=== PATIENT | male | born 1995 | race Asian ===

== ENCOUNTER 2023-10-11 10:14 | Inpatient (IN) | payer OTHER ==
[2023-10-11 10:45] VITALS: BMI 25.8
[2023-10-11] MEDS ORDERED: BENZONATATE 200 MG CAPSULE PO PRN (11:24)
[2023-10-11] MEDS ORDERED: MAGNESIUM HYDROX 2400MG/30ML ORAL SUSPENSION 30 ML CUP PO PRN (11:24)
[2023-10-11] MEDS ORDERED: NICOTINE POLACRILEX 2 MG GUM BUC PRN (11:24)
[2023-10-11] MEDS ORDERED: DICYCLOMINE HCL 10 MG CAPSULE PO PRN (11:24)
[2023-10-11] MEDS ORDERED: ONDANSETRON *ODT* 4 MG TABLET SL PRN (11:24)
[2023-10-11] MEDS ORDERED: ACETAMINOPHEN 325 MG TABLET (FP) PO PRN (11:24)
[2023-10-11] MEDS ORDERED: LOPERAMIDE HCL 2 MG CAPSULE PO PRN (11:24)
[2023-10-11] MEDS ORDERED: IBUPROFEN 400 MG TABLET (FP) PO PRN (11:24)
[2023-10-11] MEDS ORDERED: BENZOCAINE/MENTHOL (CHLORASEPTIC ) LOZENGE MM PRN (11:24)
[2023-10-11] MEDS ORDERED: guaiFENesin 600 MG TABLET.ER (FP) PO PRN (11:24)
[2023-10-11] MEDS ORDERED: MAG HYDROX/AL HYDROX/SIMETH 30 ML UNIT-DOSE CUP PO PRN (11:24)
[2023-10-11] MEDS ORDERED: BISMUTH SUBSALICYLATE 524 MG/30 ML PO PRN (11:24)
[2023-10-11] MEDS ORDERED: POLYETHYLENE GLYCOL (HEALTHYLAX) 3350 17 GM PACKET PO PRN (11:24)
[2023-10-11] MEDS ORDERED: NALOXONE HCL (KLOXXADO) 8 MG SPRAY NS PRN (11:24)
[2023-10-11] MEDS ORDERED: NALOXONE HCL 0.4 MG/ML VIAL IM PRN (11:24)
[2023-10-11] MEDS ORDERED: diazePAM 5 MG TABLET PO PRN (11:52)
[2023-10-11] MEDS ORDERED: diazePAM 5 MG TABLET ONE (12:50)
[2023-10-11] MEDS ORDERED: PRENATAL VITAMINS W/ FOLIC ACID TABLET (FP) PO ONE (12:52)
[2023-10-11] MEDS ORDERED: methaDONE HCL 10 MG TABLET (FOR DETOX USE ONLY) ONE (12:52)
[2023-10-11] MEDS: methaDONE HCL 10 MG TABLET (FOR DETOX USE ONLY) PO ONE (12:58)
[2023-10-11] MEDS: diazePAM 5 MG TABLET PO ONE (12:58)
[2023-10-11] MEDS: PRENATAL VITAMINS W/ FOLIC ACID TABLET (FP) PO SCH (12:58)
[2023-10-11] MEDS: NICOTINE 21 MG/24 HOURS TOPICAL PATCH TD SCH (12:59)
[2023-10-11] MEDS ORDERED: NICOTINE 21 MG/24 HOURS TOPICAL PATCH ONE (12:59)
[2023-10-11] MEDS: diazePAM 5 MG TABLET PO SCH (17:35)
[2023-10-11] MEDS: IBUPROFEN 600 MG TABLET (FP) PO PRN (17:36)
[2023-10-11] MEDS: THIAMINE HCL 100 MG TABLET (FP) PO SCH (22:52)
[2023-10-11] MEDS: MELATONIN 5 MG TABLETS PO SCH (22:52)
[2023-10-11] MEDS: METHOCARBAMOL 500 MG TABLET PO PRN (22:54)
[2023-10-11] MEDS: cloNIDine HCL 0.1 MG TABLET PO PRN (22:54)
[2023-10-12 09:53] VITALS: BP 124/83; PULSE 64; RESP 16; TEMP 98.3
[2023-10-12 14:38] LABS: POTASSIUM 4.4 mmol/L (3.5-5.1)
[2023-10-12 14:41] LABS: ALBUMIN 3.2 g/dl (3.4-5.0); BLOOD UREA NITROGEN 10.2 mg/dL (7-18); CALCIUM 8.6 mg/dL (8.5-10.1)
[2023-10-12 14:44] LABS: CREATININE 0.6 mg/dL (0.55-1.3)
[2023-10-12 14:46] LABS: BILIRUBIN,TOTAL 0.4 mg/dL (0.2-1); TOT PROT 7.5 g/dl (6.4-8.2)
[2023-10-12] MEDS ORDERED: QUEtiapine FUMARATE 100 MG TABLET (FP) PO PRN (22:00)
[2023-10-13] MEDS ORDERED: diazePAM 5 MG TABLET PO SCH (06:00)
[2023-10-13] MEDS ORDERED: methaDONE HCL 10 MG TABLET (FOR DETOX USE ONLY) PO ONE (10:00)
[2023-10-14] MEDS ORDERED: diazePAM 5 MG TABLET PO SCH (06:00)
[2023-10-15] MEDS ORDERED: diazePAM 5 MG TABLET PO ONE (06:00)
[2023-10-15] MEDS ORDERED: methaDONE HCL 10 MG TABLET (FOR DETOX USE ONLY) PO ONE (10:00)
== END 2023-10-12 11:57 | disposition left against medical advice (07) | DRG 770 ==
LOC: YASAS 10:14 → Y6N 12:41
PROVIDERS: ADMIT Allergy & Immunology; ATTEND Surgery
PROC: HZ2ZZZZ Detoxification Services for Substance Abuse Treatment (ICD-10-PCS; principal; 2023-10-11)
DX: F11.23 Opioid dependence with withdrawal (principal); F10.10 Alcohol abuse, uncomplicated; F14.10 Cocaine abuse, uncomplicated; F13.10 Sedative, hypnotic or anxiolytic abuse, uncomplicated; F17.210 Nicotine dependence, cigarettes, uncomplicated; F19.282 Other psychoactive substance dependence with psychoactive substance-induced sleep disorder; F19.280 Other psychoactive substance dependence with psychoactive substance-induced anxiety disorder; F19.24 Other psychoactive substance dependence with psychoactive substance-induced mood disorder; F32.A Depression, unspecified; F41.9 Anxiety disorder, unspecified; Z56.0 Unemployment, unspecified; Z59.00 Homelessness unspecified
CPT/HCPCS: 36415; 80053; 80305; 87635; 87811; 93005; 93010

== ENCOUNTER 2024-06-18 13:40 | Inpatient (IN) | payer OTHER ==
[2024-06-18 14:14] VITALS: BMI 32.2
[2024-06-18] MEDS ORDERED: NALOXONE (NARCAN) HCL 4 MG/0.1 ML SPRAY NS PRN (15:56)
[2024-06-18] MEDS ORDERED: guaiFENesin 600 MG TABLET.ER (FP) PO PRN (15:56)
[2024-06-18] MEDS ORDERED: MAGNESIUM HYDROX 2400MG/30ML ORAL SUSPENSION 30 ML CUP PO PRN (15:56)
[2024-06-18] MEDS ORDERED: BISMUTH SUBSALICYLATE 524 MG/30 ML PO PRN (15:56)
[2024-06-18] MEDS ORDERED: BENZONATATE 200 MG CAPSULE PO PRN (15:56)
[2024-06-18] MEDS ORDERED: POLYETHYLENE GLYCOL (HEALTHYLAX) 3350 17 GM PACKET PO PRN (15:56)
[2024-06-18] MEDS ORDERED: IBUPROFEN 400 MG TABLET (FP) PO PRN (15:56)
[2024-06-18] MEDS ORDERED: ACETAMINOPHEN 325 MG TABLET (FP) PO PRN (15:56)
[2024-06-18] MEDS ORDERED: ONDANSETRON *ODT* 4 MG TABLET SL PRN (15:56)
[2024-06-18] MEDS ORDERED: BENZOCAINE/MENTHOL (CHLORASEPTIC ) LOZENGE MM PRN (15:56)
[2024-06-18] MEDS ORDERED: MAG HYDROX/AL HYDROX/SIMETH 30 ML UNIT-DOSE CUP PO PRN (15:56)
[2024-06-18] MEDS ORDERED: DICYCLOMINE HCL 10 MG CAPSULE PO PRN (15:56)
[2024-06-18] MEDS ORDERED: LOPERAMIDE HCL 2 MG CAPSULE PO PRN (15:56)
[2024-06-18] MEDS ORDERED: IBUPROFEN 600 MG TABLET (FP) PO PRN (15:56)
[2024-06-18] MEDS ORDERED: cloNIDine HCL 0.1 MG TABLET PO PRN (15:58)
[2024-06-18] MEDS ORDERED: methaDONE HCL 10 MG TABLET (FOR DETOX USE ONLY) ONE (17:02)
[2024-06-18] MEDS ORDERED: diazePAM 5 MG TABLET ONE (17:02)
[2024-06-18] MEDS: diazePAM 5 MG TABLET PO SCH (17:13)
[2024-06-18] MEDS: methaDONE HCL 10 MG TABLET (FOR DETOX USE ONLY) PO ONE (17:13)
[2024-06-18] MEDS: NICOTINE POLACRILEX 4 MG GUM BUC PRN (17:58)
[2024-06-18] MEDS: MELATONIN 5 MG TABLETS PO SCH (21:30)
[2024-06-18] MEDS: diazePAM 5 MG TABLET PO PRN (21:30)
[2024-06-18] MEDS: THIAMINE 100 MG TABLET PO SCH (21:30)
[2024-06-19] MEDS: NICOTINE 21 MG/24 HOURS TOPICAL PATCH TD SCH (09:18)
[2024-06-19] MEDS: LEVOTHYROXINE 25 MCG, LEVOTHYROXINE 100 MCG PO SCH (09:18)
[2024-06-19] MEDS: PRENATAL VITAMINS W/ FOLIC ACID TABLET (FP) PO SCH (09:18)
[2024-06-19] MEDS ORDERED: LEVOTHYROXINE NA 125 MCG TABLET (FP) PO SCH (10:00)
[2024-06-19 12:00] LABS: CHLORIDE 106 mmol/L (98-107); POTASSIUM 4.2 mmol/L (3.5-5.1); SODIUM 139 mmol/L (136-145)
[2024-06-19 12:01] LABS: HEMATOCRIT 36.6 % (35.4-49); HEMOGLOBIN 12.5 GM/dL (11.7-16.9); MCH 27.9 pg (25.7-33.7); MCHC 34.2 g/dl (32.0-35.9); MEAN CELL VOLUME 81.7 fl (80-96); MEAN PLT VOLUME 8.5 fl (7.5-11.1); PLATELET COUNT 190 10^3/uL (134-434); RBC 4.48 M/mm3 (4.00-5.60); RDW 15.6 % (11.9-15.9); WHITE BLOOD COUNT 6.5 K/mm3 (4.0-10.0)
[2024-06-19 12:04] LABS: ALBUMIN 3.9 g/dl (3.4-5.0); ANION GAP 2 mmol/L (4-13); BLOOD UREA NITROGEN 24.6 mg/dL (7-18); CO2 31 mmol/L (21-32); GLUCOSE,RANDOM 105 mg/dL (74-106)
[2024-06-19 12:07] LABS: CREATININE 1.1 mg/dL (0.55-1.3)
[2024-06-19 12:08] LABS: BILIRUBIN,TOTAL 0.3 mg/dL (0.2-1); SGOT/AST 37 U/L (15-37); SGPT/ALT 26 U/L (13-61)
[2024-06-19 12:09] LABS: ALK PHOS 69 U/L (45-117)
[2024-06-19] MEDS: QUEtiapine FUMARATE 100 MG TABLET (FP) PO SCH (22:45)
[2024-06-20] MEDS: diazePAM 5 MG TABLET PO SCH (06:06)
[2024-06-20] MEDS: methaDONE HCL 10 MG TABLET (FOR DETOX USE ONLY) PO ONE (09:53)
[2024-06-21] MEDS: diazePAM 5 MG TABLET PO SCH (05:41)
[2024-06-21] MEDS: METHOCARBAMOL 500 MG TABLET PO PRN (21:45)
[2024-06-22] MEDS: diazePAM 5 MG TABLET PO ONE (05:40)
[2024-06-22] MEDS: methaDONE HCL 10 MG TABLET (FOR DETOX USE ONLY) PO ONE (10:16)
[2024-06-22] MEDS: GABAPENTIN 300 MG CAPSULE PO SCH (13:20)
[2024-06-22] MEDS: hydrOXYzine PAMOATE 25 MG CAPSULE (FP) PO PRN (17:41)
[2024-06-23 09:26] VITALS: BP 110/77; PULSE 80; RESP 18; TEMP 98.2
[2024-06-23] MEDS: NALOXONE (NYS OPIOID OVERDOSE PROGRAM) 4 MG/0.1 ML SPRAY NS PRN (11:29)
== END 2024-06-23 11:38 | disposition other institution (70) | DRG 773 ==
LOC: YASAS 13:40 → Y3N 16:38
PROVIDERS: ADMIT Allergy & Immunology; ATTEND Surgery
PROC: HZ2ZZZZ Detoxification Services for Substance Abuse Treatment (ICD-10-PCS; principal; 2024-06-18)
DX: F11.23 Opioid dependence with withdrawal (principal); F10.230 Alcohol dependence with withdrawal, uncomplicated; F13.230 Sedative, hypnotic or anxiolytic dependence with withdrawal, uncomplicated; F17.210 Nicotine dependence, cigarettes, uncomplicated; F31.9 Bipolar disorder, unspecified; F43.10 Post-traumatic stress disorder, unspecified; G47.00 Insomnia, unspecified; E03.9 Hypothyroidism, unspecified; Z87.01 Personal history of pneumonia (recurrent); Z86.19 Personal history of other infectious and parasitic diseases; Z59.00 Homelessness unspecified
CPT/HCPCS: 36415; 80053; 80305; 80307; 84443; 85027; 86780; 93005; 93010